=== PATIENT | female | born 1940 | race Native Hawaiian/Other Pacific Islander ===

== ENCOUNTER 2017-10-11 10:55 | Outpatient (CLI) | payer OTHER, MEDICARE | END 2017-10-12 04:41 | disposition home or self-care (01) | LOC: RAD 10:55 | DX: M17.11 Unilateral primary osteoarthritis, right knee (principal); Z78.0 Asymptomatic menopausal state ==

== ENCOUNTER 2018-01-04 22:11 | Inpatient (IN) | payer OTHER, MEDICARE ==
[~2018-01-04] VITALS: Ht 152.4 cm; Wt 74.4 kg
[2018-01-04 23:14] VITALS: BP 126/67; TEMP 98.7; Ht 152.4 cm; Wt 74.4 kg
[2018-01-05 08:00] VITALS: BP 144/54; TEMP 99
[2018-01-05 19:41] VITALS: BP 151/63; TEMP 97.8
[2018-01-06 19:51] VITALS: BP 153/74; TEMP 98.5
[2018-01-07 08:09] VITALS: BP 111/67; TEMP 98
[2018-01-07 19:57] VITALS: BP 124/56; TEMP 98.3
[2018-01-08 08:24] VITALS: BP 141/75; TEMP 99.2
[2018-01-08 20:00] VITALS: BP 142/92; TEMP 97.5
[2018-01-09 07:56] VITALS: BP 130/65; TEMP 98.3
[2018-01-09 20:00] VITALS: BP 127/56; TEMP 98.2
[2018-01-10 08:38] VITALS: BP 132/63; TEMP 98.2
[2018-01-10 20:07] VITALS: BP 124/52; TEMP 98
[2018-01-11 05:40] LABS: PLATELET COUNT 390 K/uL (152-353)
[2018-01-11 06:11] LABS: POTASSIUM 4.1 mmol/L (3.6-5.2)
[2018-01-11 07:45] VITALS: BP 117/53; TEMP 98.6
[2018-01-11 21:56] VITALS: BP 121/60; TEMP 98.3
[2018-01-12 08:00] VITALS: BP 137/65; TEMP 97
[2018-01-12 20:00] VITALS: BP 113/85; TEMP 98.2
[2018-01-13 07:54] VITALS: BP 147/66; TEMP 98.5
[2018-01-13 19:57] VITALS: BP 122/59; TEMP 97.8
[2018-01-14 08:19] VITALS: BP 115/67; TEMP 98.8
[2018-01-14 19:15] VITALS: BP 136/61; TEMP 97.8
== END 2018-01-15 17:00 | disposition home health service (06) | DRG 556 ==
LOC: MED/SURG 22:11
PROVIDERS: ADMIT Internal Medicine
DX: M62.81 Muscle weakness (generalized) (principal); Z47.1 Aftercare following joint replacement surgery; Z96.651 Presence of right artificial knee joint
CPT/HCPCS: 80053; 85027; 94760

== ENCOUNTER 2018-10-09 13:30 | Inpatient (IN) | payer OTHER, MEDICARE ==
[~2018-10-09] VITALS: Ht 152.4 cm; Wt 76.3 kg
[2018-10-09 15:55] VITALS: BP 127/61; TEMP 98.5
[2018-10-09 16:05] VITALS: BP 127/61; TEMP 98.5; Ht 152.4 cm; Wt 76.3 kg
[2018-10-09] MEDS ORDERED: AMLODIPINE BESYLATE PO (16:29)
[2018-10-09] MEDS ORDERED: VITAMIN D31000 UNIT PO (16:29)
[2018-10-09] MEDS ORDERED: DOCU100C10 PO (16:30)
[2018-10-09] MEDS ORDERED: HYDR25TA60 PO (16:30)
[2018-10-09] MEDS ORDERED: CENTRATEX PO (16:32)
[2018-10-09] MEDS ORDERED: XYZAL ALLERGY 245 MG PO (16:32)
[2018-10-09] MEDS ORDERED: LISI20TA11 PO (16:33)
[2018-10-09] MEDS ORDERED: MECLIZINE25 MG PO (16:34)
[2018-10-09] MEDS ORDERED: METOPROLOL25 M1 PO (16:34)
[2018-10-09] MEDS ORDERED: MONT10TA PO (16:35)
[2018-10-09] MEDS ORDERED: MYRBETRIQ50 MG PO (16:35)
[2018-10-09] MEDS ORDERED: MULTIVITAMI1 PO (16:36)
[2018-10-09] MEDS ORDERED: OMEPRAZOLE40 MG PO (16:36)
[2018-10-09] MEDS ORDERED: PROMETHAZINE HY25 MG PO (16:37)
[2018-10-09] MEDS ORDERED: TYLENOL325 MG PO (16:38)
[2018-10-09] MEDS ORDERED: SIMV20TA2 PO (16:38)
[2018-10-09] MEDS ORDERED: APIX1TAB PO (16:39)
[2018-10-09] MEDS ORDERED: CELE200C2 PO (16:40)
[2018-10-09] MEDS ORDERED: INSU100P SC (16:42)
[2018-10-09] MEDS ORDERED: MAGNSUS68 PO (16:43)
[2018-10-09] MEDS ORDERED: OXYC5TAB53 PO (16:44)
[2018-10-10 08:18] VITALS: BP 156/79; TEMP 98.2
[2018-10-10 20:00] VITALS: BP 126/55; TEMP 98.4
[2018-10-11 08:23] VITALS: BP 154/61; TEMP 98.3
[2018-10-11 20:00] VITALS: BP 106/67; TEMP 98.6
[2018-10-12 08:09] VITALS: BP 134/65; TEMP 99.4
[2018-10-12 20:21] VITALS: BP 115/52; TEMP 98.2
[2018-10-13 08:00] VITALS: BP 142/58; TEMP 97.7
[2018-10-13 20:00] VITALS: BP 111/60; TEMP 97.5
[2018-10-14 08:00] VITALS: BP 148/75; TEMP 98.3
[2018-10-14 20:28] VITALS: BP 126/63; TEMP 98.2
[2018-10-15 20:00] VITALS: BP 121/48; TEMP 98.1
[2018-10-16 07:10] VITALS: BP 148/63; TEMP 97.6
[2018-10-16 20:00] VITALS: BP 138/64; TEMP 98.3
[2018-10-17 08:00] VITALS: BP 129/63; TEMP 97.4
[2018-10-17 20:22] VITALS: BP 130/55; TEMP 98.1
[2018-10-18 08:00] VITALS: BP 157/63; TEMP 98.2
[2018-10-18 20:00] VITALS: BP 124/55; TEMP 98.7
[2018-10-19 08:00] VITALS: BP 154/58; TEMP 98.1
[2018-10-19 20:00] VITALS: BP 134/62; TEMP 98.3
[2018-10-20 08:00] VITALS: BP 147/70; TEMP 97.8
[2018-10-20 20:00] VITALS: BP 125/59; TEMP 98.5
[2018-10-21 08:11] VITALS: BP 136/68; TEMP 96.3
[2018-10-21 20:00] VITALS: BP 120/45; TEMP 98.5
[2018-10-22 08:02] VITALS: BP 135/58; TEMP 97.8
== END 2018-10-22 16:15 | disposition home or self-care (01) | DRG 556 ==
LOC: MED/SURG 13:30
PROVIDERS: ADMIT Internal Medicine
DX: M62.81 Muscle weakness (generalized) (principal); M15.8 Other polyosteoarthritis; E78.49 Other hyperlipidemia; I10 Essential (primary) hypertension; M81.8 Other osteoporosis without current pathological fracture; K21.9 Gastro-esophageal reflux disease without esophagitis; E11.9 Type 2 diabetes mellitus without complications; Z47.1 Aftercare following joint replacement surgery; Z96.652 Presence of left artificial knee joint
CPT/HCPCS: G0283-GP

== ENCOUNTER 2018-11-26 17:05 | Inpatient (IN) | payer OTHER, MEDICARE ==
[~2018-11-26] VITALS: Ht 152.4 cm; Wt 72.6 kg
[~2018-11-26 17:05] MED LIST: AMLODIPINE BESYLATE PO; APIX1TAB PO; CELE200C2 PO; CENTRATEX PO; DOCU100C10 PO; HYDR25TA60 PO; INSU100P SC; LISI20TA11 PO; MAGNSUS68 PO; MECLIZINE25 MG PO; METOPROLOL25 M1 PO; MONT10TA PO; MULTIVITAMI1 PO; MYRBETRIQ50 MG PO; OMEPRAZOLE40 MG PO; OXYC5TAB53 PO; PROMETHAZINE HY25 MG PO; SIMV20TA2 PO; TYLENOL325 MG PO; VITAMIN D31000 UNIT PO; XYZAL ALLERGY 245 MG PO
[2018-11-26 18:10] VITALS: BP 133/54; TEMP 98.2; Ht 152.4 cm; Wt 72.6 kg
[2018-11-26 18:50] LABS: PLATELET COUNT 369 K/uL (152-353)
[2018-11-26 20:00] VITALS: BP 119/60; TEMP 98.9
[2018-11-27] VITALS: BP 139/61; TEMP 98.9
[2018-11-27] MEDS ORDERED: HYDR10TA47 PO (03:24)
[2018-11-27] MEDS ORDERED: METOCLOPRAM10 MG PO (03:30)
[2018-11-27] MEDS ORDERED: SENOKOT S1 TAB (04:11)
[2018-11-27] MEDS ORDERED: CLARITIN10 M1 PO (04:12)
[2018-11-27] MEDS ORDERED: ALUMSUS6 PO (04:13)
[2018-11-27] MEDS ORDERED: MAG CITRATE PO (04:14)
[2018-11-27] MEDS ORDERED: CEFADROXIL500 MG PO (04:19)
[2018-11-27 20:00] VITALS: BP 120/58; TEMP 98.4
[2018-11-28 08:00] VITALS: BP 126/51; TEMP 98.4
[2018-11-28 20:00] VITALS: BP 135/48; TEMP 98.1
[2018-11-29 08:00] VITALS: BP 132/53; TEMP 98.4
[2018-11-29 20:00] VITALS: BP 140/56; TEMP 97.9
[2018-11-30 08:00] VITALS: BP 126/42; TEMP 97.9
[2018-11-30 20:00] VITALS: BP 133/59; TEMP 97.4
[2018-12-01 08:00] VITALS: BP 129/57; TEMP 98.5
[2018-12-01 20:00] VITALS: BP 115/62; TEMP 98.4
[2018-12-02 20:00] VITALS: BP 123/54; TEMP 98.8
[2018-12-03 08:00] VITALS: BP 107/39; TEMP 97.6
[2018-12-03 20:00] VITALS: BP 125/57; BP 129/69; TEMP 98.3
[2018-12-04 08:00] VITALS: BP 149/51; TEMP 98.4
[2018-12-04 20:00] VITALS: BP 127/55; TEMP 98.3
[2018-12-05 20:00] VITALS: BP 115/55; TEMP 98.7
[2018-12-06 08:00] VITALS: BP 119/47; TEMP 98.7
[2018-12-06 20:00] VITALS: BP 105/54; TEMP 97.8
[2018-12-07 08:00] VITALS: BP 149/61; TEMP 98
[2018-12-07 20:00] VITALS: BP 117/59; TEMP 97.6
[2018-12-08 08:00] VITALS: BP 148/64; TEMP 98.8
[2018-12-08 20:00] VITALS: BP 108/51; TEMP 98.3
[2018-12-09 08:00] VITALS: BP 127/55; TEMP 97.8
== END 2018-12-09 14:45 | disposition home or self-care (01) | DRG 556 ==
LOC: MED/SURG 17:05
PROVIDERS: ADMIT Internal Medicine
DX: M62.81 Muscle weakness (generalized) (principal); Z47.1 Aftercare following joint replacement surgery; Z96.652 Presence of left artificial knee joint; R62.7 Adult failure to thrive; E11.9 Type 2 diabetes mellitus without complications; I10 Essential (primary) hypertension; E78.49 Other hyperlipidemia; N32.81 Overactive bladder; Z86.711 Personal history of pulmonary embolism; Z97.8 Presence of other specified devices
CPT/HCPCS: 80053; 85027; 94760; G0283-GP